=== PATIENT | male | born 1970 | race Caucasian/White ===

== ENCOUNTER 2017-04-11 00:36 | Emergency (ER) | payer MEDICAID ==
[~2017-04-11] VITALS: Ht 170.2 cm; Wt 104.3 kg
[~2017-04-11 00:36] MED LIST: ADVIL200 MG PO; ANUSOL HC 25MG25 MG PR; BACTRIM DS 8001 TAB PO; DICLOFENAC SOD75 MG PO; ETODOLAC400 M1 PO; ETODOLAC400 MG PO; FAMOTIDINE 20MG20 MG PO; FLEXERIL10 MG PO; HYDROCHLOROTH12.5 M1 PO; HYDROCHLOROTHIA25 M1 PO; LISINOPRIL 5MG T5 MG PO; LISINOPRIL10 MG PO; LORTAB 5/500 501 TAB PO; MEDROL 4MG. DOSE4 MG PO; MIRALAX17 GM/DOSE PO; NAPROSYN 500MG500 MG PO; NOMEDS; PRAVASTATIN 40M40 MG PO; PRAVASTATIN40 MG PO; PREDNISONE 20MG20 MG PO; ROBAXIN 500 MG500 MG PO; ROBAXIN-750750 MG PO; TAMIFLU75 MG PO; TESSALON PERLE100 MG PO; TRIAMCINOLONE0.1% TP; ZITHROMAX Z PA250 MG PO
--- NOTE | 2017-04-11 01:00 | Emergency Room Report ---
History of Present Illness Time Seen by MD Whitman Presenting Problem in Triage Pt arrived:Walked Presenting Problem:INJURED RIGHT GREAT TOE TRYING TO GET DOG IN PIN. 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 N Clinical Suspician of Infection? N Mental Status: 1 - Regular (Normal Baseline) Sepsis Risk:Possible Sepsis Risk Have you (or family members/close friends) recently traveled outside the [place]? N If Yes, where/when: Have you had exposure to infectious disease within the past month? N TB? Other? Specify: Comment The patient says that he smacked his RIGHT second toe on concrete tonight while chasing a dog. He has pain at the base of the toe, unable to bend it. ALLERGIES Coded Allergies: No Known Allergies (10/20/16) History Medical History General CAD? No Angina: No [place]: No Hypertension? Yes Hyperlipidemia? Yes CHF? No DVT? No PE? No COPD? No Asthma? No Anemia? No GERD? Yes Gastric ulcers? No GI Bleed? No Hernia? No Thyroid Problems? No Hypothyroidism? No CVA? No Seizures? No Diabetes? No End Stage Renal Disease? No UTI? No Stones? No BPH? No GB Disease: No Nephritic Syndrome? No Asplenia? No Hepatitis? No Sickle Cell Disease? No Arthritis? No Migraines? No Cataracts? No Glaucoma? No MRSA? No HIV? No TB? No Anxiety? No Depression? No Cancer? No More? No Immunization Hx DT/Tetanus [id number] Flu REFUSES Pneumonia REFUSES Surgical Hx Previous Surgery?Y R HAND SX Family History Family Hx Diabetes Yes CAD No Hypertension Yes Hyperlipidemia No Cancer No TB No Social History Smoking Hx Smoker: Current Every Day Smoker Tobacco: Yes Type Cigarettes Packs/day < 1 Pack Alcohol Alcohol: No Review of Systems All Other Systems Reviewed and Negative Musculoskeletal see HPI Psychiatric/Neurological denies numbness Physical Exam Vital Signs Vital Signs Date Time Temp Pulse Resp B/P Pulse O2 O2 Flow FiO2 Ox Delivery Rate 04/11 0224 98.5 96 20 140/95 96 04/11 005 98.5 96 20 140/95 96 General Appearance no apparent distress Respiratory Status No: respiratory distress. Cardiovascular regular rate/rhythm, normal peripheral pulses Extremities Tenderness of his RIGHT second toe. No edema or ecchymosis. Slight deviation medially. Neurologic alert, no motor/sensory deficits Medical Decision Making LABS/Meds/Orders Pt receiving controlled substance in ED? Yes Victor Manuel was queried for this patient? Yes Comment [id number] 0 rxs. Results/Orders Current Medication Orders Sig/Mahsa Start time Last Medication Dose Route Stop Time Status Admin Bupivacaine HCl 10 ML ONCE ONE 04/11 145 DC SC 04/11 146 Bupivacaine HCl 0 .STK-MED ONE 04/11 138 DC .ROUTE Orders Procedure Date/time Status STABILIZE JOINT 04/11 202 Active TOE-RT-2ND DIGIT-3 VIEWS 04/11 108 Active XRAY/CT/US XRAY/CT/US XRAY toe(s) Comment X-ray interpreted by Bill Barber M.D.: Fracture proximal phalanx, mild angulation Procedures Orthopedic/Inj/Splint Progress Orthopedic Procedure Performed by: BILL BARBER Consent: Verbal consent obtained. Risks and benefits: risks, benefits and alternatives were discussed Consent given by: patient Patient identity confirmed: verbally with patient Procedure performed: Closed reduction of RIGHT second toe fracture Location: RIGHT second toe Sedation: None Anesthetic used: 0.5 percent bupivacaine plain digital block Fracture reduced with subsequent straightening of toe, lisa tape applied Patient tolerance: Patient tolerated the procedure well with no immediate complications Neurovascular status intact with good sensation, capillary refill and movement before and after procedure performed. Departure Departure Disposition DC Home or Self Care(routine) Clinical Impression Primary Impression: Toe fracture, right Qualifiers: Encounter type: initial encounter Toe: unspecified toe Fracture type: closed Fracture alignment: displaced Qualified Code: S92.911A - Unspecified fracture of right toe(s), initial encounter for closed fracture Condition STABLE Referrals Brittanie MACHADO,Marcos (Family) Patient Instructions DI for Toe Fracture, How to Lisa Tape Additional Instructions Lisa tape, change daily Wear postop shoe for comfort. Ice and elevate for pain and swelling. Take Tylenol while at work or driving. May take Leon while not driving or at work. Follow-up with Dr. Looney, call today for appointment. Prescriptions Current Visit Scripts HYDROCODONE/ACETAMINOPHEN (Leon 5-325 Tablet) 1 TAB PO Q6HP PRN pain #10 TAB ED Critical Care Critical Care No at 0307
--- NOTE | 2017-04-11 01:00 | Emergency Room Report ---
History of Present Illness Time Seen by MD Whitman Presenting Problem in Triage Pt arrived:Walked Presenting Problem:INJURED RIGHT GREAT TOE TRYING TO GET DOG IN PIN. 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 N Clinical Suspician of Infection? N Mental Status: 1 - Regular (Normal Baseline) Sepsis Risk:Possible Sepsis Risk Have you (or family members/close friends) recently traveled outside the [place]? N If Yes, where/when: Have you had exposure to infectious disease within the past month? N TB? Other? Specify: Comment The patient says that he smacked his RIGHT second toe on concrete tonight while chasing a dog. He has pain at the base of the toe, unable to bend it. ALLERGIES Coded Allergies: No Known Allergies (10/20/16) History Medical History General CAD? No Angina: No NM: No Hypertension? Yes Hyperlipidemia? Yes CHF? No DVT? No PE? No COPD? No Asthma? No Anemia? No GERD? Yes Gastric ulcers? No GI Bleed? No Hernia? No Thyroid Problems? No Hypothyroidism? No CVA? No Seizures? No Diabetes? No End Stage Renal Disease? No UTI? No Stones? No BPH? No GB Disease: No Nephritic Syndrome? No Asplenia? No Hepatitis? No Sickle Cell Disease? No Arthritis? No Migraines? No Cataracts? No Glaucoma? No MRSA? No HIV? No TB? No Anxiety? No Depression? No Cancer? No More? No Immunization Hx DT/Tetanus [id number] Flu REFUSES Pneumonia REFUSES Surgical Hx Previous Surgery?Y R HAND SX Family History Family Hx Diabetes Yes CAD No Hypertension Yes Hyperlipidemia No Cancer No TB No Social History Smoking Hx Smoker: Current Every Day Smoker Tobacco: Yes Type Cigarettes Packs/day < 1 Pack Alcohol Alcohol: No Review of Systems All Other Systems Reviewed and Negative Musculoskeletal see HPI Psychiatric/Neurological denies numbness Physical Exam Vital Signs Vital Signs Date Time Temp Pulse Resp B/P Pulse O2 O2 Flow FiO2 Ox Delivery Rate 04/11 0224 98.5 96 20 140/95 96 04/11 005 98.5 96 20 140/95 96 General Appearance no apparent distress Respiratory Status No: respiratory distress. Cardiovascular regular rate/rhythm, normal peripheral pulses Extremities Tenderness of his RIGHT second toe. No edema or ecchymosis. Slight deviation medially. Neurologic alert, no motor/sensory deficits Medical Decision Making LABS/Meds/Orders Pt receiving controlled substance in ED? Yes Victor Manuel was queried for this patient? Yes Comment [id number] 0 rxs. Results/Orders Current Medication Orders Sig/Mahsa Start time Last Medication Dose Route Stop Time Status Admin Bupivacaine HCl 10 ML ONCE ONE 04/11 145 DC SC 04/11 146 Bupivacaine HCl 0 .STK-MED ONE 04/11 138 DC .ROUTE Orders Procedure Date/time Status STABILIZE JOINT 04/11 202 Active TOE-RT-2ND DIGIT-3 VIEWS 04/11 108 Active XRAY/CT/US XRAY/CT/US XRAY toe(s) Comment X-ray interpreted by Bill Barber M.D.: Fracture proximal phalanx, mild angulation Procedures Orthopedic/Inj/Splint Progress Orthopedic Procedure Performed by: BILL BARBER Consent: Verbal consent obtained. Risks and benefits: risks, benefits and alternatives were discussed Consent given by: patient Patient identity confirmed: verbally with patient Procedure performed: Closed reduction of RIGHT second toe fracture Location: RIGHT second toe Sedation: None Anesthetic used: 0.5 percent bupivacaine plain digital block Fracture reduced with subsequent straightening of toe, lisa tape applied Patient tolerance: Patient tolerated the procedure well with no immediate complications Neurovascular status intact with good sensation, capillary refill and movement before and after procedure performed. Departure Departure Disposition DC Home or Self Care(routine) Clinical Impression Primary Impression: Toe fracture, right Qualifiers: Encounter type: initial encounter Toe: unspecified toe Fracture type: closed Fracture alignment: displaced Qualified Code: S92.911A - Unspecified fracture of right toe(s), initial encounter for closed fracture Condition STABLE Referrals Brittanie MACHADO,Marcos (Family) Patient Instructions DI for Toe Fracture, How to Lisa Tape Additional Instructions Lisa tape, change daily Wear postop shoe for comfort. Ice and elevate for pain and swelling. Take Tylenol while at work or driving. May take [place] while not driving or at work. Follow-up with Dr. Looney, call today for appointment. Prescriptions Current Visit Scripts HYDROCODONE/ACETAMINOPHEN ([place] 5-325 Tablet) 1 TAB PO Q6HP PRN pain #10 TAB ED Critical Care Critical Care No at 0303
--- OUTSIDE RECORDS SUMMARY | 2017-04-11 01:08 | External Medical Summary Rpt | CCD ---
Author Author , KIN SANDERSON Address Unknown Phone [email or web address] Care Team Providers Care Retirement [place] Manager Name Role Phone [facility], [facility] Purpose Continuity of Care Document - 06-10-2013 through 2016 Problems Code Diagnosis DOS Provider Status [id number] Alcohol [facility] [id number] M25.50 PAIN IN UNSPECIFIED JOINT S61.011A LACERATION W/O FB OF RIGHT THUMB W/O DAMAGE TO NAIL, INIT Allergies, Adverse Reactions, Alerts Type Allergy to substance Drug Allergy Adverse Reaction to Substance Substance Reaction Severity INGREDIENT: NO KNOWN Unknown Unknown - NO KNOWN DRUG ALLERGY No Known Drug Unknown Unknown Allergies Medications Na ND Rx Da Fi Fi Am Da Di Ph RX Ph St me C No te ll ll ou ys ag ar # ys at rm s nt no ma ic us Or Da si cy ia de te s n re d BE 57 01 0 No NZ 66 -0 ON 40 6- Lo AT 13 20 ng AT 38 14 er E 8 10 Ac 0 ti MG ve CA PS UL E SO 00 01 0 No DI 40 -0 UM 97 5- Lo 98 20 ng CH 30 14 er LO 9 RI Ac DE ti ve 0. 9% SO ANABEL TI ON MA 00 01 0 No PA 90 -0 P 41 5- Lo 32 98 20 ng 5 26 14 er MG 1 Ac TA ti BL ve ET ON 00 01 0 No DA 64 -0 NS 16 5- Lo ET 08 20 ng RO 02 14 er N 5 HC Ac L ti 4 ve MG /2 ML AL KE 00 01 0 No TO 40 -0 RO 93 5- Lo LA 79 20 ng C 50 14 er 30 1 Ac MG ti /M ve L AL Ib 62 01 0 No up 58 -0 ro 40 5- Lo fe 74 20 ng n 70 14 er 60 1 0M Ac G ti Ta ve bl et Vital Signs 06-11-2013 00:52 Name Value Interpretat Reference Comment ion Range Body 99.9 [degF] Temperature BP 64 mm[Hg] Diastolic BP Systolic 131 mm[Hg] Heart 86 /min Rate/Pulse O2% 96 % Respiratory 20 /min Rate 06-10-2013 23:38 Name Value Interpretat Reference Comment ion Range Body 100.1 Temperature [degF] 06-10-2013 22:19 Name Value Interpretat Reference Comment ion Range BP 77 mm[Hg] Diastolic BP Systolic 145 mm[Hg] Heart 88 /min Rate/Pulse O2% 97 % Respiratory 20 /min Rate Results Labs Lab Lab Date Result Refere Interp Status Commen Order Detail nces retati t Range on STREP SCREEN (RAPID) (06-10-2013 22:15) STREP NEGATIV complet SCREEN 014 E ed (RAPID) 22:15 COMPREHENSIVE METABOLIC PANEL (06-10-2013 22:10) Glucose 101 74-106 complet 014 mg/dL ed Bld-mCn 22:10 c BUN 12 7-18 complet Bld-mCn 014 mg/dL ed c 22:10 Creat 1.0 0.8-1.3 complet SerPl-m 014 mg/dL ed Cnc 22:10 Creat 132 50-200 complet Cl 014 ML/MIN ed predict 22:10 ed SerPl C-G-vRa te GFR/BSA 81 Greater complet .pred 014 ML/MIN than ed SerPl 22:10 60 Schwart z-vRate Sodium 135 136-145 complet SerPl-s 014 mmoL/L ed Cnc 22:10 Potassi 3.9 3.5-5.1 complet um 014 mmoL/L ed SerPl-s 22:10 Cnc Chlorid 98 98-107 complet e 014 mmoL/L ed SerPl-s 22:10 Cnc CO2 25 21.0-32 complet SerPl-s 014 mmoL/L .0 ed Cnc 22:10 Calcium 8.9 8.5-10. complet 014 mg/dL 1 ed SerPl-m 22:10 Cnc Prot 7.6 6.4-8.2 complet SerPl-m 014 gm/dL ed Cnc 22:10 Albumin 05-2 3.9 3.4-5.0 complet 014 gm/dL ed SerPl-m 22:10 Cnc Globuli 05-2 3.7 1.3-3.2 complet n 014 gm/dL ed Ser-mCn 22:10 c Albumin 05-2 1.1 UNK 1.1-1.8 complet /Glob 014 ed SerPl-m 22:10 Rto Bilirub 06-10-2 0.5 0.2-1.0 complet 014 mg/dL ed SerPl-m 22:10 Cnc AST 05-2 19 U/L 15-37 complet SerPl-c 014 ed Cnc 22:10 ALT 05- 37 U/L 30-65 complet SerPl-c 014 ed Cnc 22:10 ALP 06-10- 93 U/L 50-136 complet SerPl-c 014 ed Cnc 22:10 CBC with AUTO DIFF (06-10-2013 22:10) WBC # 05-2 8.3 4.8-10. complet Bld 014 K/MM3 8 ed Auto 22:10 RBC # 05-2 5.00 4.6-6.2 complet Bld 014 M/mm3 ed Auto 22:10 Hgb 05-2 15.0 14.1-18 complet Bld-mCn 014 g/dL .0 ed c 22:10 Hct Fr 06-10- 43.9 % 42.0-52 complet Bld 014 .0 ed 22:10 MCV RBC 06-10-2 87.8 fl 82.2-97 complet 014 .8 ed 22:10 MCH RBC 05-2 30.0 pg 27-31.2 complet Qn 014 ed Auto 22:10 MEAN 06-10-2 34.2 31.8-35 complet CORPUSC 014 g/dl .4 ed ULAR 22:10 HGB CONC RDW RBC 05-2 14.3 % 11.5-17 complet Auto 014 .5 ed 22:10 Platele 227 142-424 complet t Bld 014 K/mm3 ed Ql 22:10 Manual MEAN 06-10-2 6.7 fl 7.4-10. complet PLATELE 014 4 ed T 22:10 VOLUME Granulo 76.4 % 37.0-80 complet cytes 014 .0 ed Fr Bld 22:10 Auto LYMPH % 06-10- 13.8 % 10-50 complet 014 ed 22:10 Monocyt 8.6 % 1.7-9.3 complet es Fr 014 ed Bld 22:10 Auto Eosinop 1.0 % 0.1-12. complet hil Fr 014 0 ed Bld 22:10 Auto Basophi 0.3 % 0.1-2.0 complet ls Fr 014 ed Bld 22:10 Auto Granulo 6.3 1.3-8.0 complet cytes # 014 K/mm3 ed Bld 22:10 Auto Lymphoc 1.1 0.7-4.5 complet ytes Fr 014 K/mm3 ed Bld 22:10 Auto Monocyt 0.7 0.1-1.0 complet es # 014 K/mm3 ed Bld 22:10 Auto Eosinop 0.1 0.0-0.4 complet hil # 014 K/mm3 ed Bld 22:10 Auto Basophi 06-10-2 0.0 0-0.2 complet ls # 014 K/MM3 ed Bld 22:10 Auto Encounters Encounter Start End Date Code Location Performer Type Date Emergency MELISSA Carson MD (ER) 4 22:20 4 00:53 [facility]
--- OUTSIDE RECORDS SUMMARY | 2017-04-11 01:08 | External Medical Summary Rpt | CCD ---
Author Author , KIN SANDERSON Address Unknown Phone [email or web address] Care Team Providers Care Acct Exec Name Role Phone [facility], [facility] Purpose Continuity of Care Document - 06-10-2013 through 2016 Problems Code Diagnosis DOS Provider Status [id number] Alcohol [facility] [id number] M25.50 PAIN IN UNSPECIFIED JOINT S61.011A LACERATION [...] Carson MD (ER) 4 22:20 4 00:53 [facility]
--- OUTSIDE RECORDS SUMMARY | 2017-04-11 01:08 | External Medical Summary Rpt | CCD ---
Demographics Preferred Language Bulgarian Marital Status Unknown Jewish Affiliation Unknown Race Unknown Ethnic Group Unknown Author Author , KIN SANDERSON Address Unknown Phone Immunization No patient found.
--- OUTSIDE RECORDS SUMMARY | 2017-04-11 01:08 | External Medical Summary Rpt | CCD ---
Demographics Preferred Language Taiwanese Marital Status Unknown Baptist Affiliation Unknown Race Unknown Ethnic Group Unknown Author Author , KIN SANDERSON Address Unknown Phone Immunization No patient found.
[2017-04-11] MEDS ORDERED: NORCO 325 MG-51 TAB PO (02:05)
[2017-04-11 02:24] VITALS: BP 140/95
--- NOTE | 2017-04-11 05:58 | RADIOLOGY REPORT PS360 ---
TOE-RT-2ND DIGIT-3 VIEWS CLINICAL INDICATION: Pain injured ORDERING PHYSICIAN: Bill Mari MD PATIENT AGE: 46 years COMPARISON: None FINDINGS: Nondisplaced oblique fracture involves the mid to distal shaft of the proximal phalanx of the second digit with minimal medial angulation of the distal fracture fragment. IMPRESSION: Nondisplaced oblique fracture involves the mid to distal shaft of the proximal phalanx of the second digit with minimal medial angulation of the distal fracture fragment
== END 2017-04-11 02:26 | disposition home or self-care (01) ==
LOC: ER 00:36
PROC: 0QSQXZZ Reposition Right Toe Phalanx, External Approach (ICD-10-PCS; principal; 2017-04-11)
DX: S92.911A Unspecified fracture of right toe(s), initial encounter for closed fracture (principal); I10 Essential (primary) hypertension; K21.9 Gastro-esophageal reflux disease without esophagitis; F17.210 Nicotine dependence, cigarettes, uncomplicated; W54.1XXA Struck by dog, initial encounter; Y92.017 Garden or yard in single-family (private) house as the place of occurrence of the external cause